=== PATIENT | female | born 1965 | race Two or more races ===

== ENCOUNTER 2017-12-08 09:52 | Emergency (ER) | payer OTHER ==
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
[2017-12-08 11:09] VITALS: BP 129/80
== END 2017-12-08 11:25 | disposition home or self-care (01) ==
DX: S39.012A Strain of muscle, fascia and tendon of lower back, initial encounter (principal); V49.49XA Driver injured in collision with other motor vehicles in traffic accident, initial encounter; Y92.410 Unspecified street and highway as the place of occurrence of the external cause